=== PATIENT | female | born 1960 | race Caucasian/White ===

== ENCOUNTER 2020-03-16 11:13 | Emergency (ER) | payer MEDICARE, OTHER ==
[2020-03-16 11:22] VITALS: BP 151/83
[2020-03-16] MEDS ORDERED: ACETAMINOPHEN 325 MG TABLET PO ONE (11:34)
--- NOTE | 2020-03-16 11:34 | ER Document Report ---
ED Fall - General Chief Complaint: Fall Stated Complaint: FALL/HEAD INJURY Time Seen by Provider: 03/16/20 11:34 Primary Care Provider: ARIES GLASER MD [Primary Care Provider] - Follow up as needed - HPI Notes: 59-year-old female presents ED for evaluation of fall sustained stand this morning. Patient reports that she often falls asleep on the toilet. She has questionable sleep apnea. Patient has been under evaluation for this multiple times with pulmonology. Patient reports that she fell forward and struck her forehead. She reports tenderness palpation along the right frontal region. De nies loss of consciousness. Notes headache. Has not taken medications for this prior to arrival. Denies other injuries. Denies dizziness, blurry vision, nausea, vomiting, neck pain, gait disturbance, paresthesias, or weakness. - Related data Allergies/Adverse Reactions: albuterol [From Proventil HFA] Allergy (Verified 03/16/20 11:40) azithromycin Allergy (Verified 03/16/20 11:40) budesonide [From Rhinocort Allergy] Allergy (Verified 03/16/20 11:40) codeine Allergy (Verified 03/16/20 11:40) duloxetine [From Cymbalta] Allergy (Verified 03/16/20 11:40) hydrochlorothiazide Allergy (Verified 03/16/20 11:40) levofloxacin [From Levaquin] Allergy (Verified 03/16/20 11:40) metformin Allergy (Verified 03/16/20 11:40) Penicillins Allergy (Verified 03/16/20 11:40) prazosin [From Minipress] Allergy (Verified 03/16/20 11:40) prednisone Allergy (Verified 03/16/20 11:40) simvastatin Allergy (Verified 03/16/20 11:40) tramadol [From Ultram] Allergy (Verified 03/16/20 11:40) trazodone Allergy (Verified 03/16/20 11:40) triazolam Allergy (Verified 03/16/20 11:40) zaleplon [From Sonata] Allergy (Verified 03/16/20 11:40) Past Medical History - Social History Smoking Status: Current Every Day Smoker Chew tobacco use (# tins/day): No Frequency of alcohol use: None Drug Abuse: None Family History: Thyroid Disfunction - Total thyroid removal. Patient has homicidal ideation: No Review of Systems - Review of Systems Notes: Constitutional: Negative for fever. HENT: Negative for sore throat. Eyes: Negative for visual changes. Cardiovascular: Negative for chest pain. Respiratory: Negative for shortness of breath. Gastrointestinal: Negative for abdominal pain, vomiting or diarrhea. Genitourinary: Negative for dysuria. Musculoskeletal: Negative for back pain. Skin: Negative for rash. Neurological: + for headaches without weakness or numbness. 10 point ROS negative except as marked above and in HPI. Physical Exam - Vital signs Vitals: Temp Pulse Resp BP Pulse Ox 98.6 F 113 H 24 H 151/83 H 97 03/16/20 11:22 12 11:22 03/16/20 11:22 03/16/20 11:22 03/16/20 11:22 General: No acute distress. Alert and oriented x3. Sitting comfortably in a stretcher. Obese female. Skin: No jaundice, pallor, or erythema. Warm and dry. HEENT: No evidence of esqueda signs. Area of contusion with ecchymosis above the right eyebrow with tenderness to palpation. No evidence of racoon eyes. Pupils are equal round reactive to light and accommodation. Extraocular movements are intact. TMs without erythema or bulging. No hemotympanum bilaterally. Canals are clear. Nares patent without any discharge. Teeth in good condition. Pharynx without erythema, edema, or exudates. No tonsillar enlargement. Uvula is midline. Airway is patent. Neck: Supple and nontender, with no lymphadenopathy. No cervical spinal tenderness. Full range of motion. Heart: Regular rate and rhythm. S1,S2. No murmurs, rubs, or gallops. Lungs: Clear to ausculation bilaterally. No wheezes, rhonchi, rales. Equal chest expansion. No retractions. Abdomen: Soft, nontender to palpation, nondistended. Positive bowel sounds in all 4 quadrants. No masses. No CVA tenderness bilaterally. Back: No midline spinal TTP. Full range of motion. Neuro: Cranial nerves II-XII are intact. GCS 15. Moving all extremities without discomfort. Strength 5+ in all extremities. Sensation intact x4. No pronator drift. Coordination intact x4. Gait steady. Deep tendon reflexes 2+ upper and lower extremities bilaterally. Radial and pedal pulses 2+ bilaterally. Psych: Mood and affect appropriate. Course - Re-evaluation Re-evalutation: 03/16/20 13:16 59-year-old female presents to ED for evaluation of fall with closed head injury. Patient reports that she fell forward and struck her forehead. Patient denies any other injuries. Patient was neurovascularly intact. Patient had a head CT which was negative for hemorrhage or fracture. He see small area of contusion above the right eyebrow along the frontal region. She was advised of these findings. CT of the cervical spine is negative for acute fractures or dislocations. Imaging is discussed with patient. Patient most likely has a contusion. I discussed with the patient potential course of injury and recommendations for treatment. Patient is advised to rest and avoid strenuous activity. Avoid intense activity for at least 2 weeks. Use Tylenol as needed for headache, avoid NSAIDs. Patient will be given information about head injury and concussion to review. Patient is advised if they have any worsening or concerning symptoms that they should return to the emergency department for reevaluation. Patient is advised to follow up with primary care. Patient understands indications to return to the ER. Patient is agreeable with this plan. - Vital Signs Vital signs: Temp Pulse Resp BP Pulse Ox 98.6 F 113 H 24 H 151/83 H 97 03/16/20 11:22 03/16/20 11:22 03/16/20 11:22 03/16/20 11:22 03/16/20 11:22 - Laboratory Results Critical Laboratory Results Reviewed: No Critical Results - Radiology Results Critical Radiology Results Reviewed: No Critical Results Discharge - Discharge Clinical Impression: Fall Qualifiers: Encounter type: initial encounter Qualified Code(s): W19.XXXA - Unspecified fall, initial encounter Facial contusion Qualifiers: Encounter type: initial encounter Qualified Code(s): S00.83XA - Contusion of other part of head, initial encounter Closed head injury Qualifiers: Encounter type: initial encounter Qualified Code(s): S09.90XA - Unspecified injury of head, initial encounter Condition: Stable Disposition: HOME, SELF-CARE Instructions: Contusion ([facility]), Head Injury Precautions ([facility]) Prescriptions: Acetaminophen [Tylenol] 650 mg PO TID #30 tablet Referrals: ARIES GLASER MD [Primary Care Provider] - Follow up as needed
--- NOTE | 2020-03-16 12:16 | RADIOLOGY REPORT (SQ) ---
EXAM DESCRIPTION: CT HEAD WITHOUT IMAGES COMPLETED DATE/TIME: 03/16/2020 11:55 am REASON FOR STUDY: fall COMPARISON: None. TECHNIQUE: Axial images acquired through the brain without intravenous contrast. Images reviewed wi th bone, brain and subdural windows. Additional sagittal and coronal reconstructions were generated. Images stored on PACS. All CT scanners at this facility use dose modulation, iterative reconstruction, and/or weight based d osing when appropriate to reduce radiation dose to as low as reasonably achievable (ALARA). [facility]: Dose Right [facility]: CareDose [facility]: Dose Right [facility]: Teradose 4D [facility]: [id number] RADIATION DOSE: CT Rad equipment meets quality standard of care and radiation dose reduction techniq ues were employed. CTDIvol: 53.2 mGy. DLP: 1044 mGy-cm. mGy. LIMITATIONS: None. FINDINGS: VENTRICLES: Normal size and contour. 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 No hemorrhage. No midline shift. No evidence for acute infarction. N ormal polanco/white matter differentiation. No areas of low density in the white matter. Empty sella. CEREBELLUM: No masses. No hemorrhage. No alteration of density. No evidence for acute infarction. EXTRAAXIAL SPACES: No fluid collections. No masses. ORBITS AND GLOBE: No intra- or extraconal masses. Normal contour of globe without masses. CALVARIUM: No fracture. PARANASAL SINUSES: No fluid or mucosal thickening. SOFT TISSUES: Right frontal scalp contusion. OTHER: Right inferior mastoid effusion. IMPRESSION: Right frontal scalp contusion. Nonspecific right inferior mastoid effusion. No fractur e. No acute intracranial findings. EVIDENCE OF ACUTE STROKE: NO. COMMENT: Quality ID # [id number]: Final reports with documentation of one or more dose reduction techniques (e.g., Automated exposure control, adjustment of the mA and/or kV according to patient size, use of iterative reconstruction technique) TECHNICAL DOCUMENTATION: JOB ID: [id number] 2010 [employer]- All Rights Reserved Reading location - IP/workstation name: [email or web address]
--- NOTE | 2020-03-16 12:19 | RADIOLOGY REPORT (SQ) ---
EXAM DESCRIPTION: CT CERVICAL SPINE WITHOUT IMAGES COMPLETED DATE/TIME: 03/16/2020 11:55 am REASON FOR STUDY: fall COMPARISON: None. TECHNIQUE: Axial images acquired through the cervical spine without intravenous contrast. Images re viewed with lung, soft tissue and bone windows. Reconstructed coronal and sagittal MPR images review ed. Images stored on PACS. All CT scanners at this facility use dose modulation, iterative reconstruction, and/or weight based d osing when appropriate to reduce radiation dose to as low as reasonably achievable (ALARA). [facility]: Dose Right [facility]: CareDose [facility]: Dose Right [facility]: Teradose 4D [facility]: [email or web address] RADIATION DOSE: CT Rad equipment meets quality standard of care and radiation dose reduction techniq ues were employed. CTDIvol: 27.1 mGy. DLP: 611 mGy-cm. mGy. LIMITATIONS: None. FINDINGS: ALIGNMENT: Straightening of normal cervical lordosis. MINERALIZATION: Normal. VERTEBRAL BODIES: No fractures or dislocation. DISCS: C5-6 and C6-7 intervertebral disc space narrowing and marginal osteophyte formation. FACETS, LATERAL MASSES, POSTERIOR ELEMENTS: No fractures. No dislocation. No acute findings. Mild facet arthropathy. HARDWARE: None in the spine. VISUALIZED RIBS: No fractures. LUNG APICES AND SOFT TISSUES: No acute findings. Thyroidectomy. OTHER: No other significant finding. IMPRESSION: No acute osseous abnormality of the cervical spine. TECHNICAL DOCUMENTATION: JOB ID: [id number] Quality ID # [id number]: Final reports with documentation of one or more dose reduction techniques (e.g., Au tomated exposure control, adjustment of the mA and/or kV according to patient size, use of iterative reconstruction technique) 2010 [employer]- All Rights Reserved Reading location - IP/workstation name: [email or web address]
== END 2020-03-16 13:10 | disposition home or self-care (01) ==
LOC: ER 11:13
DX: S09.90XA Unspecified injury of head, initial encounter (principal); S00.83XA Contusion of other part of head, initial encounter; W18.12XA Fall from or off toilet with subsequent striking against object, initial encounter; F17.200 Nicotine dependence, unspecified, uncomplicated
CPT/HCPCS: 99284; 70450; 72125; A9270